=== PATIENT | male | born 1975 | race African-American/Black ===

== ENCOUNTER 2017-02-05 22:51 | Emergency (ER) | payer OTHER ==
[2017-02-05 22:58] VITALS: BP 138/75; PULSE 83; TEMP 98.5; BMI 25.8
--- NOTE | 2017-02-05 23:36 | PDOC ---
*Physical Exam - Vital Signs Last Vital Signs Temp Pulse Resp BP Pulse Ox 98.5 F 83 18 138/75 97 02/05/17 22:56 02/05/17 22:56 02/05/17 22:56 02/05/17 22:56 02/05/17 22:56 - Physical Exam Comments: 02/05/17 23:36 The patient was examined by [FRANKLIN Blackmon] under my direct supervision. I personally evaluated the patient. I concur with the above findings and the plan of care.
--- NOTE | 2017-02-05 23:46 | PDOC ---
History of Present Illness - General Chief Complaint: Pain Stated Complaint: EAR PROBLEM Time Seen by Provider: 02/05/17 23:14 History Source: Patient Exam Limitations: No Limitations - History of Present Illness Initial Comments: 02/05/17 23:45 41-year-old male presents to the emergency department complaining of difficulty hearing in the left ear times approximately one week. Patient states he was given ofloxacin otic drops without any relief. Patient denies any pain but insists on having a hard time hearing on his left side. He denies any recent illness, rhinorrhea, sore throat, nasal congestion or drainage from the ear. Patient denies recent swimming or travels. Timing/Duration: 1 week Past History - Past Medical History Allergies/Adverse Reactions: Allergies Allergy/AdvReac Type Severity Reaction Status Date / Time No Known Allergies Allergy Verified 02/05/17 22:56 Home Medications: Ambulatory Orders Sulfamethoxazole/Trimethoprim [Bactrim Ds -] 1 tab PO BID #14 tablet 12/22/14 Other medical history: Pt denies - Suicide/Smoking/Psychosocial Hx Smoking History: Never smoked Have you smoked in the past 12 months: No Information on smoking cessation initiated: No Hx Alcohol Use: No Drug/Substance Use Hx: No Substance Use Type: None Review of Systems - Review of Systems Able to Perform ROS?: Yes Comments:: 02/06/17 01:48 All other ROS were reviewed and are negative CONSTITUTIONAL: Absent: fever, chills, diaphoresis, generalized weakness, malaise, loss of appetite HEENT: +LEFT EAR DIFF hearing Absent: rhinorrhea, nasal congestion, throat pain, throat swelling, difficulty swallowing, mouth swelling, ear pain, eye pain, visual Changes Is the patient limited Albanian proficient: No *Physical Exam - Vital Signs Last Vital Signs Temp Pulse Resp BP Pulse Ox 98.5 F 83 18 138/75 97 02/05/17 22:56 02/05/17 22:56 02/05/17 22:56 02/05/17 22:56 02/05/17 22:56 - Physical Exam Comments: 02/06/17 01:48 GENERAL: Well developed, well nourished. Awake and alert. No acute distress. HEENT: Normocephalic, atraumatic. PERRLA, EOMI. No conjunctival pallor. Sclera are non- icteric. Moist mucous membranes. Oropharynx is clear. +left ear; severe cerumen impaction Procedure: Left ear: NS /warm irrigation/15cc with success After procedure, pt says he feels great. Denies any diff hearing *DC/Admit/Observation/Transfer Diagnosis at time of Disposition: Left ear impacted cerumen - Discharge Dispostion Disposition: HOME Condition at time of disposition: Stable Admit: No - Referrals Referrals: Fransisco Olivares MD [Staff Physician] - - Patient Instructions Printed Discharge Instructions: DI for Cerumen Impaction Additional Instructions: Follow-up with the ENT specialist. Return back to the emergency department for any concerns
== END 2017-02-05 23:49 | disposition home or self-care (01) ==
LOC: JER 22:51
DX: H61.22 Impacted cerumen, left ear (principal)
CPT/HCPCS: 99281-25

== ENCOUNTER 2018-05-26 16:43 | Emergency (ER) | payer OTHER ==
[2018-05-26 17:50] VITALS: BP 119/82; PULSE 75; TEMP 98; BMI 25.1
--- NOTE | 2018-05-26 19:33 | PDOC ---
History of Present Illness - General Chief Complaint: Pain Stated Complaint: GROWING PAIN Time Seen by Provider: 05/26/18 18:28 History Source: Patient Exam Limitations: No Limitations - History of Present Illness Initial Comments: 05/26/18 19:28 42 yo M w/ no sig PMHx comes in c/o 5 days of groin pain, below the testicles. Pain is intermittent, feels like a burning and sometimes a pressure, no burning/ pain on urination, no frequency/urgency on urination, no other complaints today , no testicular pain, no penile discharge, no h/o STDs, sexually active with his only. He has had a similar pain in the past, was told he had "protein" in his urine. Denies abdominal pain, no fever/chills, no NVD. 05/26/18 19:36 Past History - Past Medical History Allergies/Adverse Reactions: Allergies Allergy/AdvReac Type Severity Reaction Status Date / Time No Known Allergies Allergy Verified 02/05/17 22:56 Home Medications: Ambulatory Orders NK [No Known Home Medication] 05/26/18 COPD: No - Suicide/Smoking/Psychosocial Hx Smoking History: Never smoked Have you smoked in the past 12 months: No Hx Alcohol Use: No Drug/Substance Use Hx: No Substance Use Type: None Review of Systems - Review of Systems Able to Perform ROS?: Yes Constitutional: No: Chills, Fever, Malaise, Night Sweats HEENTM: No: Eye Pain, Recent change in vision, Throat Pain Respiratory: No: Cough, Shortness of Breath Cardiac (ROS): No: Chest Pain, Palpitations, Chest Tightness ABD/GI: No: Diarrhea, Nausea, Vomiting, Abdominal cramping : No: Dysuria, Hematuria Musculoskeletal: No: Back Pain Integumentary: No: Rash Neurological: No: Headache, Numbness, Dizziness Psychiatric: No: Change in Appetite Endocrine: No: Unexplained Weight Loss *Physical Exam - Vital Signs Last Vital Signs Temp Pulse Resp BP Pulse Ox 98 F 75 16 119/82 100 05/26/18 17:47 05/26/18 17:47 05/26/18 17:47 05/26/18 17:47 05/26/18 17:47 - Physical Exam General Appearance: Yes: Nourished. No: Apparent Distress HEENT: positive: MARIELA, Normal Voice. negative: Pale Conjunctivae, Scleral Icterus (R), Scleral Icterus (L) Neck: positive: Supple. negative: Decreased range of motion, Tender midline Respiratory/Chest: positive: Lungs Clear, Normal Breath Sounds. negative: Respiratory Distress, Accessory Muscle Use Cardiovascular: positive: Regular Rhythm, Regular Rate Gastrointestinal/Abdominal: positive: Normal Bowel Sounds, Soft. negative: Tender Male Genitalia: positive: other (MIld tenderness on groin area below the testicles, no hernias felt, no testicular tenderness, no penile discharge). negative: discharge, testicular tenderness, testicular mass, epididymus tender, inguinal hernia, hernia, CVAT Musculoskeletal: positive: Normal Inspection. negative: CVA Tenderness, Decreased Range of Motion Extremity: positive: Normal Capillary Refill, Normal Inspection, Normal Range of Motion. negative: Tender, Pedal Edema Integumentary: positive: Normal Color, Dry. negative: Jaundice, Rash Neurologic: positive: Fully Oriented, Alert, Normal Mood/Affect Moderate Sedation - Procedure Monitoring Vital Signs: Procedure Monitoring Vital Signs Temperature 98 F 05/26/18 17:47 Pulse Rate 75 05/26/18 17:47 Respiratory Rate 16 05/26/18 17:47 Blood Pressure 119/82 05/26/18 17:47 O2 Sat by Pulse Oximetry (%) 100 05/26/18 17:47 ED Treatment Course - RADIOLOGY Radiology Studies Ordered: Category Date Time Status SCROTUM AND CONTENTS US [US] Stat Ultrasound 05/26/18 18:59 Ordered Medical Decision Making - Medical Decision Making 05/26/18 19:39 42 yo M w/ perineal/groin pain under testicle. WIll check UA, cultures and do a sono 05/26/18 20:02 Sono shows hydroceles and epididymis cyst, will discharge with urology follow up Return for worsening/concerning symptoms Pt verbalizes understanding and agrees with plan *DC/Admit/Observation/Transfer Diagnosis at time of Disposition: Hydrocele, bilateral, Epididymal cyst - Discharge Dispostion Disposition: HOME Condition at time of disposition: Stable - Referrals Referrals: Sj Valle MD [Primary Care Provider] - Fuentes Ugarte MD [Staff Physician] - - Patient Instructions Additional Instructions: YOu may call [phone] for your test results in 3 days. Please follow up with your urologist as instructed. Return for worsening/concerning symptoms - Post Discharge Activity
[2018-05-26 20:12] LABS: URINE APPEARANCE CLEAR; URINE BILIRUBIN NEGATIVE (<2.0 mg/dL); URINE COLOR YELLOW; URINE GLUCOSE (UA) NEGATIVE (NEGATIVE); URINE KETONE TRACE (NEGATIVE); URINE LEUK ESTERASE NEGATIVE (NEGATIVE); URINE NITRITE NEGATIVE (NEGATIVE); URINE PROTEIN NEGATIVE (NEGATIVE); URINE UROBILINOGEN NEGATIVE mg/dL (0.2-1.0)
== END 2018-05-26 20:49 | disposition home or self-care (01) ==
LOC: JERFT 16:43
DX: N43.2 Other hydrocele (principal); N50.3 Cyst of epididymis
CPT/HCPCS: 36415; 76870-TC; 81003; 87086; 87491; 87591; 99281-25